=== PATIENT | male | born 1930 | race Caucasian/White ===

== ENCOUNTER → 2016-10-21 | Outpatient (CLI) | payer OTHER ==
[~2016-10-21] MED LIST: ADVIL PM1 TABLET PO; ALLOPURINOL300 MG PO; AMLODIPINE BESY10 MG PO; ATENOLOL50 MG PO; BISACODYL5 MG PO; DOCUSATE SODIU100 MG PO; GABAPENTIN300 MG PO; GEMFIBROZIL600 MG PO; LISINOPRIL40 MG PO; NORCO 5/3251 TABLET PO; ONDANSETRON ODT4 MG PO; TIZANIDINE HCL2 M1 PO; VALSARTAN320 MG PO; [UNRECOGNIZED DRUG - OTHER]
== END ==
LOC: RAD 09:30
DX: I70.0 Atherosclerosis of aorta (principal); N28.9 Disorder of kidney and ureter, unspecified; K76.9 Liver disease, unspecified; M47.9 Spondylosis, unspecified; Z93.50 Unspecified cystostomy status
CPT/HCPCS: 74176